=== PATIENT | male | born 1955 | race Caucasian/White ===

== ENCOUNTER 2018-05-12 19:29 | Inpatient (IN) | payer SELFPAY ==
[~2018-05-12] VITALS: Ht 172.7 cm; Wt 80.0 kg
[2018-05-12 19:40] VITALS: Ht 172.7 cm; Wt 80.0 kg
[2018-05-12 20:28] LABS: BASOPHIL % 0.4 % (0-2); PLATELET COUNT 143 x10^3mcL (130-400); RED CELL DISTRIBUTION WIDTH 13.5 % (11.5-14.5)
[2018-05-12 20:38] LABS: CALCIUM 8.7 mg/dL (8.5-10.1); CHLORIDE SERUM 107 mmol/L (98-107); GFR1 > 60 mL/min; GLUCOSE SERUM 103 mg/dL (74-106); SODIUM SERUM 143 mmol/L (136-145)
[2018-05-12 20:55] LABS: ALBUMIN 3.5 g/dL (3.4-5.0); ALKALINE PHOSPHATASE 68 U/L (46-116); ALT/SGPT 29 U/L (16-63); AST/SGOT 15 U/L (15-37); BILIRUBIN TOTAL 0.21 mg/dL (0.20-1.00); LIPASE 226 IU/L (73-393); TOTAL PROTEIN, SERUM 6.8 g/dL (6.4-8.2)
[2018-05-12 21:41] LABS: T3 TOTAL 0.98 ng/mL
[2018-05-12 21:43] LABS: MAGNESIUM 1.8 mg/dL (1.8-2.4); PHOSPHOROUS 3.7 mg/dL (2.5-4.9)
[2018-05-12 21:47] LABS: CHOLESTEROL/HDL RATIO 4.8
[2018-05-12 21:50] LABS: microscopic required? NO
[2018-05-12 21:53] LABS: FREE T4 0.89 ng/dL (0.76-1.46); FREE THYROXINE INDEX 2.7 ug/dL (1.4-4.5); T4(THYROXINE) 7.1 ug/dL (4.7-13.3)
[2018-05-12 22:00] VITALS: BP 142/52
[2018-05-12 22:07] VITALS: BP 142/52
[2018-05-12 22:10] LABS: UA SPECIFIC GRAVITY >=1.030 (1.005-1.035); urine erythrocyte NEGATIVE (NEGATIVE)
[2018-05-12 22:19] LABS: AMPHETAMINE QUAL UR NONE DETECTED (See below)
[2018-05-13 04:49] LABS: CALCIUM 8.3 mg/dL (8.5-10.1); CARBON DIOXIDE 27.1 mmol/L (21-32); CHLORIDE SERUM 109 mmol/L (98-107); CREATININE SERUM 0.9 mg/dL (0.7-1.3); GFR1 > 60 mL/min; GLUCOSE SERUM 97 mg/dL (74-106); MAGNESIUM 1.8 mg/dL (1.8-2.4); PHOSPHOROUS 3.8 mg/dL (2.5-4.9); POTASSIUM SERUM 4.3 mmol/L (3.5-5.1); SODIUM SERUM 144 mmol/L (136-145)
[2018-05-13 04:58] LABS: BASOPHIL % 0.4 % (0-2); PLATELET COUNT 137 x10^3mcL (130-400); RED CELL DISTRIBUTION WIDTH 12.7 % (11.5-14.5)
[2018-05-13 05:27] VITALS: BP 128/59
[2018-05-13 09:01] VITALS: BP 117/61
[2018-05-13 13:37] VITALS: BP 123/54
[2018-05-13 16:51] VITALS: BP 121/69
[2018-05-13 20:46] VITALS: BP 141/57
[2018-05-14 05:18] VITALS: BP 129/59
[2018-05-14 07:06] LABS: CALCIUM 8.7 mg/dL (8.5-10.1); CARBON DIOXIDE 27.3 mmol/L (21-32); CHLORIDE SERUM 109 mmol/L (98-107); CREATININE SERUM 0.8 mg/dL (0.7-1.3); GFR1 > 60 mL/min; GLUCOSE SERUM 91 mg/dL (74-106); MAGNESIUM 1.8 mg/dL (1.8-2.4); PHOSPHOROUS 3.3 mg/dL (2.5-4.9); POTASSIUM SERUM 3.9 mmol/L (3.5-5.1); SODIUM SERUM 140 mmol/L (136-145)
[2018-05-14 07:37] LABS: BASOPHIL % 0.5 % (0-2); PLATELET COUNT 138 x10^3mcL (130-400); RED CELL DISTRIBUTION WIDTH 13.9 % (11.5-14.5)
[2018-05-14 09:33] VITALS: BP 117/57
[2018-05-14] MEDS ORDERED: LIPI20 PO (10:34)
[2018-05-14] MEDS ORDERED: ECO81 PO (10:39)
[2018-05-14 12:59] VITALS: BP 113/61
[2018-05-14 17:08] VITALS: BP 119/63
== END 2018-05-14 18:55 | disposition home or self-care (01) | DRG 206 ==
LOC: ED 19:29 → DU 21:03
PROVIDERS: Emergency Medicine; Internal Medicine
DX: M94.0 Chondrocostal junction syndrome [Tietze] (principal); R27.0 Ataxia, unspecified; R00.1 Bradycardia, unspecified; K21.9 Gastro-esophageal reflux disease without esophagitis; G90.8 Other disorders of autonomic nervous system; E78.00 Pure hypercholesterolemia, unspecified; Z87.891 Personal history of nicotine dependence; R47.1 Dysarthria and anarthria; E78.1 Pure hyperglyceridemia
CPT/HCPCS: 83880; 84439; A9500; J2785; J7030; Q0092